=== PATIENT | male | born 1995 | race Caucasian/White ===

== ENCOUNTER 2025-05-03 15:11 | Emergency (ER) | payer MEDICAID ==
[~2025-05-03] VITALS: Ht 185.4 cm; Wt 80.7 kg
[2025-05-03 15:35] VITALS: TEMP 98.2
[2025-05-03 16:20] LABS: PLATELET COUNT (AUTO) 243 K/uL (150-450); RED BLOOD CELL COUNT(AUTO) 4.48 MIL/uL (4.5-6.0); RED CELL DISTRIBUTION WIDTH 13.7 % (11.5-15.0); WHITE BLOOD COUNT (AUTO) 4.7 K/uL (4.3-11.0)
[2025-05-03 16:22] LABS: ERYTHROCYTE SEDIMENTATION RATE 5 MM/HR (0-15)
[2025-05-03 16:38] LABS: CALCIUM, SERUM 8.9 mg/dL (8.5-10.1); CREATININE 0.8 mg/dL (0.6-1.3); SODIUM SERUM 141 mmol/L (136-145); UREA NITROGEN, BLOOD 14 mg/dL (7-18)
[2025-05-03] MEDS ORDERED: IOHEXOL-300 100 ML VIAL IV ONE (17:20)
[2025-05-03] MEDS ORDERED: IV NS 0.9% 250 ML IV ONE (17:20)
[2025-05-03] MEDS ORDERED: HYDROCODONE/APAP 5/325MG TABLET ONE (17:38)
[2025-05-03] MEDS: HYDROCODONE/APAP 5/325MG TABLET PO ONE (17:41)
[2025-05-03] MEDS ORDERED: ACET-2030 PO (18:41)
[2025-05-03] MEDS ORDERED: SULF1TAB48 PO (18:41)
[2025-05-03] MEDS ORDERED: IBUP-1957 PO (18:41)
[2025-05-03] MEDS ORDERED: HYDR-4275 PO (18:48)
[2025-05-03 18:58] VITALS: BP 130/85; O2SAT 99
== END 2025-05-03 18:56 | disposition home or self-care (01) ==
LOC: ER 15:30 → EDBD 15:30 → ER 18:56
DX: L03.116 Cellulitis of left lower limb (principal); E11.9 Type 2 diabetes mellitus without complications; Z79.1 Long term (current) use of non-steroidal anti-inflammatories (NSAID)
CPT/HCPCS: 99285; 73701; 85025; 80048; 85652; 36415; 86140; J7050; Q9967

== ENCOUNTER 2025-05-05 14:25 | Emergency (ER) | payer MEDICAID ==
[~2025-05-05] VITALS: Ht 188 cm; Wt 86.2 kg
[~2025-05-05 14:25] MED LIST: ACET-2030 PO; HYDR-4275 PO; IBUP-1957 PO; SULF1TAB48 PO
[2025-05-05 14:33] VITALS: BP 128/73; TEMP 98.1; O2SAT 99
[2025-05-05] MEDS ORDERED: KETOROLAC TROMETHAMINE 15 MG/ML VIAL ONE (16:15)
[2025-05-05] MEDS ORDERED: HYDR-4209 PO ×2 (16:17→21:02)
[2025-05-05] MEDS: KETOROLAC TROMETHAMINE 15 MG/ML VIAL IM ONE (16:32)
== END 2025-05-05 16:33 | disposition home or self-care (01) ==
LOC: ER 15:40
DX: S80.02XA Contusion of left knee, initial encounter (principal); E11.9 Type 2 diabetes mellitus without complications; Z79.1 Long term (current) use of non-steroidal anti-inflammatories (NSAID); Y04.0XXA Assault by unarmed brawl or fight, initial encounter; Y93.89 Activity, other specified; Y92.89 Other specified places as the place of occurrence of the external cause; Y99.8 Other external cause status
CPT/HCPCS: 99283; 96372; 73564; J1885

== ENCOUNTER 2025-05-13 09:25 | Emergency (ER) | payer MEDICAID ==
[~2025-05-13] VITALS: Ht 188 cm; Wt 86.2 kg
[~2025-05-13 09:25] MED LIST changes: +HYDR-4209 PO
[2025-05-13 09:48] VITALS: BP 126/72; TEMP 98.1
[2025-05-13 10:26] VITALS: O2SAT 99
== END 2025-05-13 10:42 | disposition home or self-care (01) ==
LOC: ER 09:34
DX: L03.116 Cellulitis of left lower limb (principal); Z48.01 Encounter for change or removal of surgical wound dressing; E11.9 Type 2 diabetes mellitus without complications; Z98.890 Other specified postprocedural states